=== PATIENT | female | born 1985 | race Caucasian/White ===

== ENCOUNTER → 2016-05-11 | Outpatient (CLI) | payer BC ==
[~2016-05-11] MED LIST: CETI10TA PO; PRIL40CA PO; TRINTAB PO
--- NOTE | 2016-05-11 10:08 | REP ---
CHEST X-RAY: Two views. HISTORY: Bronchitis. FINDINGS: The lungs are well inflated and clear. Heart size is normal. Pulmonary vasculature is not increased. No significant bony abnormality is seen. IMPRESSION: Negative chest x-ray.
== END ==
LOC: M CLY 09:31
PROVIDERS: ATTEND Nurse Practitioner Family
DX: J40 Bronchitis, not specified as acute or chronic (principal); J02.9 Acute pharyngitis, unspecified

== ENCOUNTER → 2016-12-26 | Outpatient (REF) | payer BC ==
[~2016-12-26] MED LIST changes: -TRINTAB PO; +TRINTAB3 PO
== END ==
LOC: M SFHCCLAY 08:45
PROVIDERS: ATTEND Family Medicine
DX: Z01.419 Encounter for gynecological examination (general) (routine) without abnormal findings (principal)

== ENCOUNTER 2017-04-18 08:34 | Emergency (ER) | payer BC ==
[2017-04-18 09:54] LABS: BASO # 0.1 10^3/uL (0.0-0.2); BASO % 0.9 % (0.0-1.0); EOS # 0.1 10^3/uL (0.0-0.50); EOS % 1.7 % (0.0-3.0); HEMATOCRIT 36.6 % (36.0-47.0); HEMOGLOBIN 11.7 g/dl (12.0-16.0); IMMATURE GRANULOCYTE % 0.1 % (0-0); LYMPH # 1.5 10^3/uL (1.5-4.5); LYMPH % 22.1 % (24.0-44.0); MEAN CORPUSCULAR HEMOGLOBIN 26.7 pg (27.0-33.0); MEAN CORPUSCULAR VOLUME 83.6 fl (80.0-96.0); MONO # 0.5 10^3/uL (0.0-0.8); MONO % 6.8 % (0.0-5.0); NEUTROPHILS # 4.7 10^3/uL (1.8-7.7); NEUTROPHILS % 68.4 % (36.0-66.0); PLATELET COUNT, AUTOMATED 302 10^3/uL (150-450); RED BLOOD COUNT 4.38 10^6/uL (4.00-5.40); RED CELL DISTRIBUTION WIDTH 13.6 % (11.5-14.5); WHITE BLOOD COUNT 6.9 10^3/uL (4.0-10.0)
[2017-04-18 10:40] LABS: ANION GAP 7 MEQ/L (8-16); BLOOD UREA NITROGEN 10 MG/DL (7-18); CALCIUM LEVEL 8.4 MG/DL (8.5-10.1); CARBON DIOXIDE LEVEL 29 MEQ/L (21-32); CHLORIDE LEVEL 104 MEQ/L (98-107); FREE THYROXINE INDEX 2.5 % (1.3-4.8); GLOMERULAR FILTRATION RATE > 60.0 (>60); GLUCOSE, FASTING 131 MG/DL (70-105); MAGNESIUM LEVEL 2.2 MG/DL (1.8-2.4); POTASSIUM SERUM 3.8 MEQ/L (3.5-5.1); SODIUM LEVEL 140 MEQ/L (136-145); T UPTAKE 24 % (30-39); THYROXINE (T4) 10.5 UG/DL (4.5-12.0)
== END 2017-04-18 11:43 | disposition home or self-care (01) ==
LOC: M ED 08:34
DX: I49.3 Ventricular premature depolarization (principal); R06.02 Shortness of breath; K21.9 Gastro-esophageal reflux disease without esophagitis; Z79.899 Other long term (current) drug therapy; Z79.3 Long term (current) use of hormonal contraceptives; Z87.891 Personal history of nicotine dependence
CPT/HCPCS: 71045

== ENCOUNTER → 2017-05-08 | Outpatient (REF) | payer BC ==
[2017-05-08 12:48] LABS: BASO # 0.1 10^3/uL (0.0-0.2); EOS # 0.3 10^3/uL (0.0-0.50); EOS % 5.9 % (0.0-3.0); HEMATOCRIT 35.5 % (36.0-47.0); HEMOGLOBIN 11.2 g/dl (12.0-16.0); IMMATURE GRANULOCYTE % 0.2 % (0-0); LYMPH # 2.1 10^3/uL (1.5-4.5); LYMPH % 38.4 % (24.0-44.0); MEAN CORPUSCULAR HEMOGLOBIN 26.4 pg (27.0-33.0); MEAN CORPUSCULAR HGB CONC 31.5 g/dl (32.0-36.5); MEAN CORPUSCULAR VOLUME 83.7 fl (80.0-96.0); MONO # 0.4 10^3/uL (0.0-0.8); MONO % 7.2 % (0.0-5.0); NEUTROPHILS # 2.6 10^3/uL (1.8-7.7); NEUTROPHILS % 46.3 % (36.0-66.0); PLATELET COUNT, AUTOMATED 362 10^3/uL (150-450); RED BLOOD COUNT 4.24 10^6/uL (4.00-5.40); RED CELL DISTRIBUTION WIDTH 13.5 % (11.5-14.5); WHITE BLOOD COUNT 5.6 10^3/uL (4.0-10.0)
[2017-05-08 12:59] LABS: REASON FOR REVIEW COMPREHENSIVE REVIEW; SLIDE REVIEW Report; SOURCE PERIPHERAL SMEAR
[2017-05-08 13:10] LABS: FOLATE 12.2 NG/ML; VITAMIN B12 LEVEL 378 PG/ML
[2017-05-08 13:15] LABS: IRON (FE) 63 UG/DL (50-170); PERCENT SATURATION 12.8 % (13.2-45.0); TOTAL IRON BINDING CAPACITY 493 UG/DL (250-450)
== END ==
LOC: M LABDRAWC 11:48
DX: D64.9 Anemia, unspecified (principal)
CPT/HCPCS: 82746

== ENCOUNTER → 2017-08-07 | Outpatient (CLI) | payer BC ==
[~2017-08-07] MED LIST changes: -CETI10TA PO; +GASTROGRAFIN SOLUTION 30ML (Q9963) As Ordered; +ISOVUE-370 76% 100ML VIAL (Q9967) As Ordered; -PRIL40CA PO; -TRINTAB3 PO
== END ==
LOC: M RAD 12:09
DX: R10.12 Left upper quadrant pain (principal)
CPT/HCPCS: Q9963

== ENCOUNTER → 2018-02-12 | Outpatient (REF) | payer BC | LOC: M LAB REF 17:55 | DX: Z12.4 Encounter for screening for malignant neoplasm of cervix (principal) | CPT/HCPCS: 88142 ==

== ENCOUNTER → 2018-03-05 | Outpatient (REF) | payer BC | LOC: M LAB REF 19:36 | DX: R30.0 Dysuria (principal) | CPT/HCPCS: 87088 ==

== ENCOUNTER → 2018-03-05 | Outpatient (CLI) | payer BC | LOC: M WUC 16:48 | DX: Q76.49 Other congenital malformations of spine, not associated with scoliosis (principal); R30.0 Dysuria; M54.5 Low back pain | CPT/HCPCS: 72110 ==

== ENCOUNTER → 2018-04-17 | Outpatient (CLI) | payer BC ==
[~2018-04-17] MED LIST changes: +CARA1TAB6 PO; +CETI10TA PO; +CYCL10TA PO; +ESOM1CAP5 PO; -GASTROGRAFIN SOLUTION 30ML (Q9963) As Ordered; -ISOVUE-370 76% 100ML VIAL (Q9967) As Ordered; +PRIL40CA PO; +TRINTAB PO; +VENTAER; +ZYRT10CA5 PO
== END ==
LOC: M RAD 08:17
PROVIDERS: ATTEND Internal Medicine Gastroenterology
DX: K80.20 Calculus of gallbladder without cholecystitis without obstruction (principal); K82.9 Disease of gallbladder, unspecified; R10.11 Right upper quadrant pain; Z53.9 Procedure and treatment not carried out, unspecified reason

== ENCOUNTER 2018-06-18 07:15 | Day surgery (SDC) | payer BC ==
[~2018-06-18] VITALS: Ht 172.7 cm; Wt 93.0 kg
[~2018-06-18 07:15] MED LIST changes: +LIDOCAINE 1% MDV 20ML VIAL SQ PRN; +LORA-243 PO; +LR 1,000 ML IV ONE
[2018-06-18 08:25] LABS: URINE PREG TEST NEGATIVE (NEGATIVE)
[2018-06-18] MEDS ORDERED: IBUP200C25 PO (08:39)
[2018-06-18] MEDS ORDERED: BUPIVACAINE HCL 0.25% 30 ML VIAL As Ordered ONE (09:03)
[2018-06-18] MEDS ORDERED: PROPOFOL 200 MG/20 ML VIAL As Ordered ONE ×2 (09:09→10:20)
[2018-06-18] MEDS ORDERED: LIDOCAINE 2% INJ 100 MG/5 ML SDV (FOR ANES.) As Ordered ONE (09:09)
[2018-06-18] MEDS ORDERED: fentaNYL 250 MCG/5 ML INJECTION (J3010) As Ordered ONE (09:09)
[2018-06-18] MEDS ORDERED: ROCURONIUM BROMIDE 50 MG/5 ML VIAL As Ordered ONE (09:09)
[2018-06-18] MEDS ORDERED: MIDAZOLAM INJ 2 MG/2 ML VIAL (J2250) As Ordered ONE (09:09)
[2018-06-18] MEDS ORDERED: dexameTHASONE 4 MG/ML 1ML VIAL (J1100) As Ordered ONE (09:09)
[2018-06-18] MEDS ORDERED: GLYCOPYRROLATE INJ 0.2 MG/ML 2 ML VIAL As Ordered ONE (10:23)
[2018-06-18] MEDS ORDERED: ONDANSETRON 4MG/2ML VIAL (J2405) As Ordered ONE (10:23)
[2018-06-18] MEDS ORDERED: HYDROmorphone HCL 2 MG/ML 1ML VIAL (J1170) As Ordered ONE (10:23)
[2018-06-18] MEDS ORDERED: KETOROLAC 60 MG/2 ML VIAL (J1885) As Ordered ONE (10:23)
[2018-06-18] MEDS ORDERED: NEOSTIGMINE 10 MG/10 ML VIAL (J2710) As Ordered ONE (10:23)
[2018-06-18] MEDS ORDERED: ePHEDrine SULFATE 25 MG/5 ML(5MG/ML) SYRINGE As Ordered ONE (10:40)
[2018-06-18] MEDS ORDERED: PHENYLephrine HCL 500 MCG/5 ML (100MCG/ML) SYRINGE (J2370) As Ordered ONE (10:40)
[2018-06-18] MEDS ORDERED: METOCLOPRAMIDE INJ 10MG/2ML VIAL (J2765) As Ordered ONE (10:51)
[2018-06-18] MEDS ORDERED: ESMOLOL INJ 100MG/10ML VIAL As Ordered ONE (11:26)
[2018-06-18] MEDS ORDERED: IBUPROFEN 600 MG TAB PO PRN (11:45)
[2018-06-18] MEDS ORDERED: PERCOCET 5MG/325MG TAB PO PRN (11:45)
[2018-06-18] MEDS ORDERED: ONDANSETRON 4MG/2ML VIAL (J2405) IV PRN (11:45)
[2018-06-18] MEDS ORDERED: NORCO, ANEXSIA 5/325MG TABLET (HYDROcodone/ACETAMINOPHEN) PO PRN (11:45)
[2018-06-18] MEDS ORDERED: HYDROMORPHONE HCL 0.5 MG/ 0.5 ML SYRINGE (J1170 PER 1) IV PRN (11:45)
[2018-06-18] MEDS ORDERED: fentaNYL 100 MCG/2 ML INJECTION (J3010) IV PRN (11:45)
[2018-06-18] MEDS ORDERED: ACETAMINOPHEN TAB 650MG DOSE (2X325MG) PO PRN (11:45)
[2018-06-18] MEDS ORDERED: LR 1,000 ML IV SCH (11:45)
[2018-06-18] MEDS ORDERED: METOPROLOL 5 MG/5 ML VIAL As Ordered ONE (11:55)
[2018-06-18] MEDS: METOPROLOL 5 MG/5 ML VIAL IV SCH ×2 (11:57→12:03)
[2018-06-18 12:03] VITALS: BP 144/83
[2018-06-18 13:50] VITALS: BP 134/81
[2018-06-18] MEDS ORDERED: SUGAMMADEX SODIUM 500 MG/5 ML VIAL (BRIDION) As Ordered ONE (15:36)
--- NOTE | 2018-06-20 07:16 | RO ---
DATE OF PROCEDURE: 06/18/2018 PREOPERATIVE DIAGNOSIS: Symptomatic gallstones. POSTOPERATIVE DIAGNOSES: 1. Symptomatic gallstones. 2. Umbilical hernia. PROCEDURE PERFORMED: His laparoscopic cholecystectomy with repair of umbilical hernia. SURGEON: Dr. Park AUCTION CLERK: SAMMY Weeks ANESTHESIA: General. INDICATIONS FOR PROCEDURE: The patient is a 33-year-old woman with history of episodic upper abdominal pain. She was found to have cholelithiasis. She is now for laparoscopic cholecystectomy. OPERATIVE PROCEDURE: The patient was brought to the operating room and placed on the table in a supine position. She was placed under general endotracheal anesthesia. The patient's abdomen was prepped and draped in a sterile fashion. Inspection revealed the patient had a small umbilical hernia protruding right in the center of the umbilicus. The palpable defect was perhaps 8-10 mm. I elected to utilize this as the site for insertion of the initial trocar. Therefore, local anesthesia was achieved with 0.25% Marcaine. An incision was begun in the umbilicus and extended superiorly. This was deepened through the subcutaneous tissues. The incision was deepened down to the level of the fascia. A small hernia sac was identified and this was excised. An opening was created through the preperitoneal fat and peritoneum and an 11 mm trocar was passed into the abdomen. The abdomen was insufflated with carbon dioxide gas. The laparoscope was placed. Initial examination showed a normal-appearing liver. Visualized portions of the small large bowel in the stomach all appeared normal. The patient was tilted to a reverse Trendelenburg position. Two 5 mm trocars were placed in the right upper quadrant and there is a third 5 mm trocar was placed in left upper quadrant. Graspers were inserted and the edge of the liver was elevated and the gallbladder was grasped. The gallbladder wall appeared somewhat thickened but there was no acute inflammation. Dissection was but begun at the gallbladder neck by opening the peritoneum using the hook cautery. Dissection proceeded through the pericholecystic tissues using the hook cautery. The cystic duct was clearly identified. A small blood vessel running near the cystic duct was elevated thoroughly cauterized and divided. The cystic duct was then divided out circumferentially. The cystic duct was doubly clipped with hemoclips and divided. The gallbladder was then dissected free from the gallbladder bed using the spatula cautery. The gallbladder was not perforated in the course of dissection. The gallbladder was placed in the Endopouch. The right upper quadrant was irrigated and inspected. A single small bleeder in the gallbladder bed was controlled with cautery. Repeat inspection showed no evidence of bleeding or bile leak. The patient was returned to a flat position. The abdomen was deflated and the trocars were removed. The gallbladder was recovered through the umbilical hernia defect. Palpation of the gallbladder reveals perhaps the nose and small stones. This was sent for permanent pathology. The fascia in the umbilical incision was then cleared of some overlying fibrofatty tissue and the edges were clearly identified. The fascial defect was closed transversely with interrupted simple sutures of 2-0 Vicryl. The umbilicus was tacked down to the underlying fascia with a 3-0 Vicryl. The skin incisions were then all closed with buried four or 5-0 Vicryl and Steri-Strips. Light dressings were applied. The patient tolerated the procedure well without apparent complication. She was awakened in the operating room, extubated and moved to the recovery room in stable condition.
== END 2018-06-18 13:55 | disposition home or self-care (01) ==
LOC: M SDC 07:15
PROVIDERS: ATTEND Surgery
DX: K80.18 Calculus of gallbladder with other cholecystitis without obstruction (principal); K42.9 Umbilical hernia without obstruction or gangrene; K21.9 Gastro-esophageal reflux disease without esophagitis; E04.1 Nontoxic single thyroid nodule; L40.8 Other psoriasis; Z79.51 Long term (current) use of inhaled steroids; Z79.899 Other long term (current) drug therapy
CPT/HCPCS: 47562; 49585; 84703; 88304; J1100; J1170; J1885; J2250; J2370; J2405; J2710; J2765; J3010

== ENCOUNTER → 2018-11-20 | Outpatient (REF) | payer BC ==
[~2018-11-20] MED LIST changes: +IBUP200C25 PO; -LIDOCAINE 1% MDV 20ML VIAL SQ PRN; -LR 1,000 ML IV ONE
[2018-11-20 11:37] LABS: BASO # 0.1 10^3/uL (0.0-0.2); BASO % 0.8 % (0.0-1.0); EOS # 0.2 10^3/uL (0.0-0.50); EOS % 2.6 % (0.0-3.0); HEMATOCRIT 36.5 % (36.0-47.0); HEMOGLOBIN 11.5 g/dl (12.0-15.5); LYMPH # 2.3 10^3/uL (1.5-4.5); LYMPH % 37.5 % (24.0-44.0); MEAN CORPUSCULAR HEMOGLOBIN 27.4 pg (27.0-33.0); MEAN CORPUSCULAR HGB CONC 31.5 g/dl (32.0-36.5); MEAN CORPUSCULAR VOLUME 86.9 fl (80.0-96.0); MONO # 0.4 10^3/uL (0.0-0.8); MONO % 6.9 % (0.0-5.0); NEUTROPHILS # 3.2 10^3/uL (1.8-7.7); NEUTROPHILS % 51.9 % (36.0-66.0); PLATELET COUNT, AUTOMATED 315 10^3/uL (150-450); WHITE BLOOD COUNT 6.2 10^3/uL (4.0-10.0)
[2018-11-20 11:49] LABS: ALBUMIN 3.2 GM/DL (3.2-5.2); ALT/SGPT 14 U/L (12-78); BILIRUBIN,TOTAL 0.3 MG/DL (0.2-1.0); BLOOD UREA NITROGEN 9 MG/DL (7-18); CALCIUM LEVEL 9.1 MG/DL (8.5-10.1); CARBON DIOXIDE LEVEL 28 MEQ/L (21-32); CHLORIDE LEVEL 108 MEQ/L (98-107); CHOLESTEROL LEVEL 207 MG/DL (<200); CREATININE FOR GFR 0.74 MG/DL (0.55-1.30); FERRITIN 4 NG/ML (8-252); FREE THYROXINE INDEX 3.3 % (1.3-4.8); GLOMERULAR FILTRATION RATE > 60.0 (>60); GLUCOSE, FASTING 97 MG/DL (70-100); HDL CHOLESTEROL 60 MG/DL (>40); IRON (FE) 65 UG/DL (50-170); LDL CHOLESTEROL 112 MG/DL (<100); NON-HDL-C 147 MG/DL; PERCENT SATURATION 13.3 % (13.2-45.0); POTASSIUM SERUM 4.5 MEQ/L (3.5-5.1); SODIUM LEVEL 141 MEQ/L (136-145); T UPTAKE 25 % (30-39); TOTAL IRON BINDING CAPACITY 490 UG/DL (250-450); TOTAL PROTEIN 7.1 GM/DL (6.4-8.2); TRIGLYCERIDES LEVEL 175 MG/DL (<150)
[2018-11-20 12:17] LABS: FOLATE 15.3 NG/ML (>5.4); TOTAL 25(OH) VITAMIN D 32.7 NG/ML (30.0-100.0); VITAMIN B12 LEVEL 340 PG/ML (247-911)
== END ==
LOC: M SFHCCLAY 07:44
PROVIDERS: ATTEND Nurse Practitioner Family
DX: K21.0 Gastro-esophageal reflux disease with esophagitis (principal); E78.1 Pure hyperglyceridemia; Z86.2 Personal history of diseases of the blood and blood-forming organs and certain disorders involving the immune mechanism; R53.83 Other fatigue

== ENCOUNTER → 2018-11-25 | Outpatient (CLI) | payer BC ==
--- NOTE | 2018-11-26 08:23 | REP ---
REASON: Thyromegaly. COMPARISON: 06/15/2015, the latest prior. Right lobe of the thyroid measures 4.7 x 1.9 x 1.7 cm and the left lobe measures 4.9 x 1.6 x 1.90 cm. The isthmus measures 5 mm. There is a tiny complex cystic and solid structure seen in the mid polar region of the right lobe which measures 8 mm and there is a tiny cyst in the inferior pole of the right lobe measuring 7 mm. There is tiny cyst in the lower pole region of the left lobe which measures 5 mm. IMPRESSION: No significant change compared to the prior exam. Electronically Signed by Shashank Martinez DO 11/26/2018 12:01 P
== END ==
LOC: M RAD 15:57
PROVIDERS: ATTEND Nurse Practitioner Family
DX: E04.9 Nontoxic goiter, unspecified (principal)

== ENCOUNTER → 2018-11-26 | Outpatient (CLI) | payer BC ==
[2018-11-26 17:09] LABS: ALBUMIN 3.6 GM/DL (3.2-5.2); ALT/SGPT 17 U/L (12-78); BILIRUBIN,TOTAL 0.2 MG/DL (0.2-1.0); BLOOD UREA NITROGEN 11 MG/DL (7-18); CALCIUM LEVEL 9.2 MG/DL (8.5-10.1); CARBON DIOXIDE LEVEL 25 MEQ/L (21-32); CHLORIDE LEVEL 106 MEQ/L (98-107); CK-MB VALUE MASS < 1.0 NG/ML (<3.6); CPK CREATINE PHOSPHOKINASE 78 U/L (26-192); CREATININE FOR GFR 0.86 MG/DL (0.55-1.30); FREE T4 0.96 NG/DL (0.76-1.46); GLOMERULAR FILTRATION RATE > 60.0 (>60); GLUCOSE, FASTING 103 MG/DL (70-100); MB/CK RELATIVE INDEX 1.28 (< OR =4); POTASSIUM SERUM 4.5 MEQ/L (3.5-5.1); SODIUM LEVEL 141 MEQ/L (136-145); THYROID STIMULATING HORMONE 0.635 uIU/ML (0.358-3.740); TOTAL PROTEIN 7.4 GM/DL (6.4-8.2); TROPONIN I < 0.02 NG/ML (< 0.10)
[2018-11-26 17:11] LABS: BASO # 0.1 10^3/uL (0.0-0.2); EOS # 0.1 10^3/uL (0.0-0.50); EOS % 1.8 % (0.0-3.0); HEMATOCRIT 38.1 % (36.0-47.0); HEMOGLOBIN 11.9 g/dl (12.0-15.5); LYMPH # 1.7 10^3/uL (1.5-4.5); LYMPH % 34.4 % (24.0-44.0); MEAN CORPUSCULAR HEMOGLOBIN 27.5 pg (27.0-33.0); MEAN CORPUSCULAR HGB CONC 31.2 g/dl (32.0-36.5); MONO # 0.5 10^3/uL (0.0-0.8); MONO % 9.7 % (0.0-5.0); NEUTROPHILS # 2.6 10^3/uL (1.8-7.7); NEUTROPHILS % 52.9 % (36.0-66.0); PLATELET COUNT, AUTOMATED 340 10^3/uL (150-450); RED BLOOD COUNT 4.33 10^6/uL (4.00-5.40); WHITE BLOOD COUNT 4.9 10^3/uL (4.0-10.0)
[2018-11-26 19:08] LABS: ERYTHROCYTE SEDIMENTATION RATE 24 mm/hr (0-20)
== END ==
LOC: M WUC 11:09
PROVIDERS: ATTEND Physician Assistant
DX: R07.1 Chest pain on breathing (principal)

== ENCOUNTER → 2019-01-31 | Outpatient (REF) | payer BC | LOC: M SFHCCLAY 11:24 | PROVIDERS: ATTEND Nurse Practitioner Family | DX: J02.9 Acute pharyngitis, unspecified (principal) ==

== ENCOUNTER → 2019-03-23 | Outpatient (REF) | payer BC | LOC: M LAB REF 13:27 | PROVIDERS: ATTEND Internal Medicine | DX: J02.9 Acute pharyngitis, unspecified (principal) ==

== ENCOUNTER → 2019-04-18 | Outpatient (REF) | payer BC | LOC: M LAB REF 15:22 | PROVIDERS: ATTEND Otolaryngology | DX: J02.9 Acute pharyngitis, unspecified (principal) ==

== ENCOUNTER → 2019-06-12 | Outpatient (CLI) | payer BC ==
--- NOTE | 2019-06-12 13:18 | REP ---
Sternum: Three views. History: Pain. No history of trauma. Findings: And lateral views of the sternum demonstrate intact and normally aligned manubrium and sternum. Pre sternal and retrosternal soft tissues are unremarkable. The manubrial clavicular articulations are symmetric and normal in appearance. No medial clavicular abnormality is seen. Impression: Negative radiographs of the sternum. Electronically Signed by Peter Garcia MD 06/12/2019 01:10 P
== END ==
LOC: M CLY 11:27
PROVIDERS: ATTEND Family Medicine
DX: R07.89 Other chest pain (principal)

== ENCOUNTER → 2019-07-21 | Outpatient (REF) | payer BC ==
[2019-07-21 11:52] LABS: BASO # 0.1 10^3/uL (0.0-0.2); BASO % 0.7 % (0.0-1.0); EOS # 0.2 10^3/uL (0.0-0.5); EOS % 2.8 % (0.0-3.0); HEMOGLOBIN 11.2 g/dl (12.0-15.5); LYMPH # 2.7 10^3/uL (1.5-5.0); LYMPH % 38.8 % (24.0-44.0); MEAN CORPUSCULAR HEMOGLOBIN 27.1 pg (27.0-33.0); MEAN CORPUSCULAR HGB CONC 31.1 g/dl (32.0-36.5); MEAN CORPUSCULAR VOLUME 87.2 fl (80.0-96.0); MONO # 0.4 10^3/uL (0.0-0.8); MONO % 6.1 % (0.0-5.0); NEUTROPHILS # 3.5 10^3/uL (1.5-8.5); NEUTROPHILS % 51.3 % (36.0-66.0); PLATELET COUNT, AUTOMATED 305 10^3/uL (150-450); RED BLOOD COUNT 4.13 10^6/uL (4.00-5.40); WHITE BLOOD COUNT 6.9 10^3/uL (4.0-10.0)
[2019-07-21 12:09] LABS: ALBUMIN 3.1 GM/DL (3.2-5.2); ALT/SGPT 12 U/L (12-78); BILIRUBIN,TOTAL 0.3 MG/DL (0.2-1.0); BLOOD UREA NITROGEN 11 MG/DL (7-18); C REACTIVE PROTEIN QUANTITATIV 1.48 MG/DL (0.00-0.30); CALCIUM LEVEL 8.8 MG/DL (8.5-10.1); CARBON DIOXIDE LEVEL 29 MEQ/L (21-32); CHLORIDE LEVEL 106 MEQ/L (98-107); CREATININE FOR GFR 0.76 MG/DL (0.55-1.30); GLOMERULAR FILTRATION RATE > 60.0 (>60); GLUCOSE, FASTING 93 MG/DL (70-100); POTASSIUM SERUM 4.3 MEQ/L (3.5-5.1); RHEUMATOID FACTOR QUANT < 10.0 IU/ML (<15.0); SODIUM LEVEL 138 MEQ/L (136-145)
[2019-07-21 12:10] LABS: ERYTHROCYTE SEDIMENTATION RATE 37 mm/hr (0-20)
[2019-07-23 00:06] LABS: ANA (HEP2) Negative (.); CYCLIC CITRULLINATED PEPTIDE 10 units (0-19); Lyme Disease IgG/IgM Antibodie <0.91 ISR (0.00-0.90); Lyme Disease IgM Ab Quantitati <0.80 index (0.00-0.79)
== END ==
LOC: M SFHCCLAY 08:06
PROVIDERS: ATTEND Family Medicine
DX: R07.89 Other chest pain (principal); M79.10 Myalgia, unspecified site; M25.50 Pain in unspecified joint

== ENCOUNTER → 2019-08-15 | Outpatient (REF) | payer BC ==
[~2019-08-15] MED LIST changes: +CYCL-707 PO; -CYCL10TA PO
== END ==
LOC: M SFHCWAGY 10:07
PROVIDERS: ATTEND Advanced Practice Midwife
DX: Z12.4 Encounter for screening for malignant neoplasm of cervix (principal)
CPT/HCPCS: 87624; G0123

== ENCOUNTER → 2020-08-14 | Outpatient (CLI) | payer BC, OTHER | LOC: M LABSMTC 10:16 | PROVIDERS: ATTEND Ophthalmology | DX: Z03.818 Encounter for observation for suspected exposure to other biological agents ruled out (principal); Z20.822 Contact with and (suspected) exposure to COVID-19 ==

== ENCOUNTER → 2020-10-04 | Outpatient (REF) | payer OTHER | LOC: M SFHCWAGY 10:51 | PROVIDERS: ATTEND Advanced Practice Midwife | DX: Z12.4 Encounter for screening for malignant neoplasm of cervix (principal) | CPT/HCPCS: 87624; G0123 ==

== ENCOUNTER → 2021-02-14 | Outpatient (REF) | payer OTHER ==
[2021-02-14 18:00] LABS: BASO # 0.1 10^3/uL (0.0-0.2); BASO % 0.9 % (0.0-1.0); EOS # 0.1 10^3/uL (0.0-0.5); EOS % 1.8 % (0.0-3.0); HEMATOCRIT 42.9 % (36.0-47.0); HEMOGLOBIN 13.7 g/dl (12.0-15.5); LYMPH # 2.1 10^3/uL (1.5-5.0); LYMPH % 31.5 % (24.0-44.0); MEAN CORPUSCULAR HEMOGLOBIN 28.6 pg (27.0-33.0); MEAN CORPUSCULAR HGB CONC 31.9 g/dl (32.0-36.5); MEAN CORPUSCULAR VOLUME 89.6 fl (80.0-96.0); MONO # 0.5 10^3/uL (0.0-0.8); MONO % 7.7 % (2.0-8.0); NEUTROPHILS # 3.9 10^3/uL (1.5-8.5); PLATELET COUNT, AUTOMATED 304 10^3/uL (150-450); RED BLOOD COUNT 4.79 10^6/uL (4.00-5.40); WHITE BLOOD COUNT 6.8 10^3/uL (4.0-10.0)
[2021-02-14 18:15] LABS: ALBUMIN 3.8 GM/DL (3.2-5.2); ALT/SGPT 48 U/L (12-78); BILIRUBIN,TOTAL 0.5 MG/DL (0.2-1.0); BLOOD UREA NITROGEN 10 MG/DL (7-18); CALCIUM LEVEL 9.2 MG/DL (8.5-10.1); CARBON DIOXIDE LEVEL 30 MEQ/L (21-32); CHLORIDE LEVEL 107 MEQ/L (98-107); CHOLESTEROL LEVEL 233 MG/DL (<200); CHOLESTEROL RISK RATIO 4.087 (<5); CREATININE FOR GFR 0.76 MG/DL (0.55-1.30); GLOMERULAR FILTRATION RATE > 60.0 (>60); GLUCOSE, FASTING 104 MG/DL (70-100); HDL CHOLESTEROL 57 MG/DL (>40); IRON (FE) 85 UG/DL (50-170); LDL CHOLESTEROL 154 MG/DL (<100); NON-HDL-C 176 MG/DL; POTASSIUM SERUM 4.4 MEQ/L (3.5-5.1); SODIUM LEVEL 140 MEQ/L (136-145); TOTAL PROTEIN 7.4 GM/DL (6.4-8.2); TRIGLYCERIDES LEVEL 110 MG/DL (<150)
== END ==
LOC: M SFHCCLAY 10:03
PROVIDERS: ATTEND Family Medicine
DX: Z86.2 Personal history of diseases of the blood and blood-forming organs and certain disorders involving the immune mechanism (principal); K21.00 Gastro-esophageal reflux disease with esophagitis, without bleeding; E78.1 Pure hyperglyceridemia

== ENCOUNTER → 2021-02-16 | Outpatient (CLI) | payer OTHER ==
--- NOTE | 2021-02-16 16:45 | REP ---
INDICATION: THORACIC AND LOWER BACK PAIN. COMPARISON: None TECHNIQUE: AP and lateral views FINDINGS: Vertebral body height and alignment is within normal limits. The disc spaces are symmetric and relatively well maintained. There is minimal posterior disc space narrowing. Pedicles are intact bilaterally. IMPRESSION: Minimal degenerative changes. Incidental note is made of either partial sacralization of L5 or partial lumbarization of S1. An exact vertebral body count cannot be made by this exam. <Electronically signed by Shashank Martinez > 02/16/21 [id number]
--- NOTE | 2021-02-16 16:46 | REP ---
INDICATION: SPINE PAIN. COMPARISON: None. TECHNIQUE: AP and lateral FINDINGS: Vertebral body height and alignment is within normal limits. The disc spaces are symmetric and well maintained. The pedicles are intact bilaterally. IMPRESSION: No acute osseous abnormality. <Electronically signed by Shashank Martinez > 02/16/21 [id number]
--- NOTE | 2021-02-16 16:46 | REP ---
INDICATION: CERVICALGIA. COMPARISON: None TECHNIQUE: Four views total FINDINGS: Vertebral body height and alignment is within normal limits. The disc spaces appear symmetric and well maintained throughout. The facet joints appear to be well aligned bilaterally. The C7-T1 level cannot be evaluated. No swimmer's view was obtained. The dens cannot be effectively evaluated secondary to the superimposition of osseous structures and/or dentition on all views. IMPRESSION: Unremarkable cervical spine series. Exam limitations as described above. <Electronically signed by Shashank Martinez > 02/16/21 [id number]
== END ==
LOC: M CLY 15:33
PROVIDERS: ATTEND Family Medicine
DX: M54.6 Pain in thoracic spine (principal); M54.50 Low back pain, unspecified

== ENCOUNTER → 2021-02-16 | Outpatient (REF) | payer OTHER ==
[2021-02-18 16:09] LABS: Lyme Disease IgG/IgM Antibodie <0.91 ISR (0.00-0.90); Lyme Disease IgM Ab Quantitati <0.80 index (0.00-0.79)
== END ==
LOC: M SFHCCLAY 15:22
PROVIDERS: ATTEND Family Medicine
DX: M79.10 Myalgia, unspecified site (principal)

== ENCOUNTER → 2021-03-16 | Outpatient (CLI) | payer OTHER | LOC: M PLAIMG 15:18 | PROVIDERS: ATTEND Family Medicine | DX: G44.52 New daily persistent headache (NDPH) (principal); J34.1 Cyst and mucocele of nose and nasal sinus ==

== ENCOUNTER → 2021-03-29 | Outpatient (REF) | payer OTHER | LOC: M SFHCCLAY 07:28 | PROVIDERS: ATTEND Family Medicine | DX: Z20.822 Contact with and (suspected) exposure to COVID-19 (principal) ==

== ENCOUNTER → 2022-03-15 | Outpatient (REF) | payer OTHER ==
[2022-03-15 11:52] LABS: BASO # 0.1 10^3/uL (0.0-0.2); BASO % 0.9 % (0.0-1.0); EOS # 0.1 10^3/uL (0.0-0.5); EOS % 1.5 % (0.0-3.0); HEMATOCRIT 40.2 % (36.0-47.0); LYMPH # 2.3 10^3/uL (1.5-5.0); MEAN CORPUSCULAR HEMOGLOBIN 29.9 pg (27.0-33.0); MEAN CORPUSCULAR HGB CONC 32.3 g/dl (32.0-36.5); MEAN CORPUSCULAR VOLUME 92.4 fl (80.0-96.0); MONO # 0.6 10^3/uL (0.0-0.8); MONO % 6.7 % (2.0-8.0); NEUTROPHILS # 6.1 10^3/uL (1.5-8.5); NEUTROPHILS % 65.6 % (36.0-66.0); PLATELET COUNT, AUTOMATED 286 10^3/uL (150-450); RED BLOOD COUNT 4.35 10^6/uL (4.00-5.40); WHITE BLOOD COUNT 9.4 10^3/uL (4.0-10.0)
[2022-03-15 12:14] LABS: MAGNESIUM LEVEL 1.9 MG/DL (1.8-2.4)
[2022-03-15 12:15] LABS: IRON (FE) 72 UG/DL (50-170)
[2022-03-15 12:16] LABS: ALBUMIN 3.8 G/DL (3.2-5.2); ALKALINE PHOSPHATASE 64 U/L (46-116); ALT/SGPT 15 U/L (7.0-40); AST/SGOT 12 U/L (<34); BILIRUBIN,TOTAL 0.5 MG/DL (0.3-1.2); BLOOD UREA NITROGEN 11 MG/DL (9-23); CALCIUM LEVEL 8.9 MG/DL (8.5-10.1); CARBON DIOXIDE LEVEL 28 MMOL/L (20-31); CHLORIDE LEVEL 103 MMOL/L (98-107); CHOLESTEROL LEVEL 208 MG/DL (<200); CHOLESTEROL RISK RATIO 3.45 (<5); CREATININE FOR GFR 0.73 MG/DL (0.55-1.30); FERRITIN 33.6 NG/ML (7.3-270.7); GLOMERULAR FILTRATION RATE > 60.0 (>60); GLUCOSE, FASTING 127 MG/DL (60-100); HDL CHOLESTEROL 60.2 MG/DL (>40); LDL CHOLESTEROL 123.4 MG/DL (<100); NON-HDL-C 148 MG/DL; POTASSIUM SERUM 4.3 MMOL/L (3.5-5.1); SODIUM LEVEL 139 MMOL/L (136-145); THYROID STIMULATING HORMONE 1.654 uIU/ML (0.55-4.78); TOTAL PROTEIN 6.9 G/DL (5.7-8.2); TRIGLYCERIDES LEVEL 122 MG/DL (<150); VITAMIN B12 LEVEL 472 PG/ML (211-911)
[2022-03-15 12:26] LABS: HEMOGLOBIN A1c 5.4 % (4.0-6.0)
[2022-03-15 15:49] LABS: FOLATE 14.91 NG/ML (>5.4)
== END ==
LOC: M SFHCCLAY 07:33
PROVIDERS: ATTEND Physician Assistant
DX: R20.8 Other disturbances of skin sensation (principal); Z86.2 Personal history of diseases of the blood and blood-forming organs and certain disorders involving the immune mechanism; E78.1 Pure hyperglyceridemia

== ENCOUNTER → 2022-03-17 | Outpatient (CLI) | payer OTHER | LOC: M CLY 11:34 | PROVIDERS: ATTEND Family Medicine | DX: R07.89 Other chest pain (principal) ==

== ENCOUNTER → 2022-03-23 | Outpatient (REF) | payer OTHER | LOC: M PLALAB 11:03 | PROVIDERS: ATTEND Advanced Practice Midwife | DX: Z01.411 Encounter for gynecological examination (general) (routine) with abnormal findings (principal) | CPT/HCPCS: 87624; G0123 ==

== ENCOUNTER → 2022-03-24 | Outpatient (CLI) | payer OTHER | LOC: M WHC 09:16 | PROVIDERS: ATTEND Advanced Practice Midwife | DX: N93.9 Abnormal uterine and vaginal bleeding, unspecified (principal); N83.201 Unspecified ovarian cyst, right side; N83.202 Unspecified ovarian cyst, left side ==

== ENCOUNTER → 2022-04-19 | Outpatient (CLI) | payer OTHER | LOC: M PLAIMG 09:51 | PROVIDERS: ATTEND Family Medicine | DX: R07.89 Other chest pain (principal); R05.8 Other specified cough ==

== ENCOUNTER → 2022-05-31 | Outpatient (REF) | payer OTHER | LOC: M PLALAB 15:36 | PROVIDERS: ATTEND Advanced Practice Midwife | DX: N92.1 Excessive and frequent menstruation with irregular cycle (principal) ==

== ENCOUNTER → 2022-06-19 | Outpatient (REF) | payer OTHER | LOC: M WUC 11:28 | PROVIDERS: ATTEND Physician Assistant | DX: R19.7 Diarrhea, unspecified (principal) ==

== ENCOUNTER → 2022-10-30 | Outpatient (REF) | payer OTHER ==
[2022-10-30 18:30] LABS: HEMATOCRIT 41.8 % (36.0-47.0); HEMOGLOBIN 13.5 g/dl (12.0-15.5); MEAN CORPUSCULAR HEMOGLOBIN 29.6 pg (27.0-33.0); MEAN CORPUSCULAR HGB CONC 32.3 g/dl (32.0-36.5); MEAN CORPUSCULAR VOLUME 91.7 fl (80.0-96.0); PLATELET COUNT, AUTOMATED 260 10^3/uL (150-450); RED BLOOD COUNT 4.56 10^6/uL (4.00-5.40); WHITE BLOOD COUNT 5.1 10^3/uL (4.0-10.0)
[2022-10-30 18:57] LABS: ALBUMIN 3.8 G/DL (3.2-5.2); ALKALINE PHOSPHATASE 57 U/L (46-116); ALT/SGPT 16 U/L (7.0-40); AST/SGOT < 8 U/L (<34); BILIRUBIN,TOTAL 0.5 MG/DL (0.3-1.2); BLOOD UREA NITROGEN 12 MG/DL (9-23); CALCIUM LEVEL 8.7 MG/DL (8.5-10.1); CARBON DIOXIDE LEVEL 26 MMOL/L (20-31); CHLORIDE LEVEL 106 MMOL/L (98-107); CREATININE FOR GFR 0.66 MG/DL (0.55-1.30); GLOMERULAR FILTRATION RATE > 60.0 (>60); GLUCOSE, FASTING 101 MG/DL (60-100); POTASSIUM SERUM 4.8 MMOL/L (3.5-5.1); SODIUM LEVEL 141 MMOL/L (136-145); TOTAL PROTEIN 6.9 G/DL (5.7-8.2)
[2022-10-30 19:00] LABS: RHEUMATOID FACTOR QUANT < 3.5 IU/ML (<14)
[2022-10-30 19:11] LABS: HEPATITIS B SURFACE ANTIGEN NEGATIVE (NEGATIVE)
[2022-10-30 19:31] LABS: HEPATITIS C VIRUS ABY INDEX 0.18 INDEX (<0.8)
[2022-10-30 19:32] LABS: HEPATITIS B CORE ANTIBODY IGM NEGATIVE (NEGATIVE)
== END ==
LOC: M SFHCDERM 10:39
PROVIDERS: ATTEND Physician Assistant
DX: L40.9 Psoriasis, unspecified (principal)

== ENCOUNTER 2023-01-22 14:01 | Emergency (ER) | payer OTHER ==
[~2023-01-22] VITALS: Ht 172.7 cm; Wt 96.4 kg
[~2023-01-22 14:01] MED LIST changes: +CORE6.25 PO; +ESCI5SOL3 PO; +ESOM0.1C PO; +FERR325T3 PO; +FLON1SPR; +ZYRT10TA12 PO
[2023-01-22 14:02] VITALS: TEMP 97.9
[2023-01-22] MEDS ORDERED: FERRTAB6 (15:01)
[2023-01-22] MEDS ORDERED: LEXA5TAB13 (15:01)
[2023-01-22] MEDS ORDERED: ASPIRIN 81MG CHEW TABLET PO ONE (15:15)
[2023-01-22 15:45] LABS: BASO % 0.6 % (0.0-1.0); EOS # 0.1 10^3/uL (0.0-0.5); EOS % 1.8 % (0.0-3.0); HEMOGLOBIN 13.1 g/dl (12.0-15.5); LYMPH # 2.2 10^3/uL (1.5-5.0); LYMPH % 31.6 % (24.0-44.0); MEAN CORPUSCULAR HEMOGLOBIN 30.5 pg (27.0-33.0); MEAN CORPUSCULAR HGB CONC 33.6 g/dl (32.0-36.5); MEAN CORPUSCULAR VOLUME 90.7 fl (80.0-96.0); MONO # 0.6 10^3/uL (0.0-0.8); MONO % 8.4 % (2.0-8.0); NEUTROPHILS # 3.9 10^3/uL (1.5-8.5); NEUTROPHILS % 57.5 % (36.0-66.0); PLATELET COUNT, AUTOMATED 257 10^3/uL (150-450); WHITE BLOOD COUNT 6.8 10^3/uL (4.0-10.0)
[2023-01-22 15:56] LABS: INR 0.92; PROTHROMBIN TIME 12.1 SECONDS (12.5-14.5)
[2023-01-22 15:57] LABS: PARTIAL THROMBOPLASTIN TIME 26.2 SECONDS (24.8-34.2)
[2023-01-22 16:11] LABS: LIPASE 40 U/L (12-53)
[2023-01-22 16:12] LABS: CK-MB VALUE MASS < 1.0 NG/ML (<3.6)
[2023-01-22 16:13] LABS: CPK CREATINE PHOSPHOKINASE 88 U/L (34-145); MB/CK RELATIVE INDEX 1.13 (< OR =4)
[2023-01-22 16:15] LABS: THYROID STIMULATING HORMONE 1.576 uIU/ML (0.55-4.78)
[2023-01-22 16:17] LABS: RSV AMPLIFICATION NEGATIVE (NEGATIVE)
[2023-01-22 16:39] LABS: ALBUMIN 3.8 G/DL (3.2-5.2); ALKALINE PHOSPHATASE 70 U/L (46-116); ALT/SGPT 19 U/L (7.0-40); AST/SGOT 13 U/L (<34); BILIRUBIN,DIRECT < 0.1 MG/DL (<0.4); BILIRUBIN,TOTAL 0.3 MG/DL (0.3-1.2); BLOOD UREA NITROGEN 12 MG/DL (9-23); CARBON DIOXIDE LEVEL 30 MMOL/L (20-31); CHLORIDE LEVEL 107 MMOL/L (98-107); CREATININE FOR GFR 0.69 MG/DL (0.55-1.30); GLOMERULAR FILTRATION RATE > 60.0 (>60); GLUCOSE, FASTING 100 MG/DL (60-100); HCG, SERUM QUALITATIVE NEGATIVE (NEGATIVE); PHOSPHORUS LEVEL 4.2 MG/DL (2.5-4.9); POTASSIUM SERUM 4.3 MMOL/L (3.5-5.1); SODIUM LEVEL 140 MMOL/L (136-145)
[2023-01-22 17:14] LABS: CK-MB VALUE MASS < 1.0 NG/ML (<3.6)
[2023-01-22 17:15] LABS: CPK CREATINE PHOSPHOKINASE 80 U/L (34-145); MB/CK RELATIVE INDEX 1.25 (< OR =4)
[2023-01-22] MEDS ORDERED: ISOVUE-370 76% 100ML VIAL As Ordered ONE (17:22)
[2023-01-22 18:00] VITALS: BP 118/67
[2023-01-22 18:01] VITALS: O2SAT 99
== END 2023-01-22 18:06 | disposition home or self-care (01) ==
LOC: M ED 14:01
DX: R07.9 Chest pain, unspecified (principal); R00.2 Palpitations; I10 Essential (primary) hypertension; K21.9 Gastro-esophageal reflux disease without esophagitis; F41.9 Anxiety disorder, unspecified; Z91.048 Other nonmedicinal substance allergy status; Z79.899 Other long term (current) drug therapy
CPT/HCPCS: 36415; 71275; 80048; 80076; 82550; 82553; 83690; 83735; 84100; 84439; 84443; 84484; 84703; 85025; 85610; 85730; 87631; 93005; 93041; 94760; 99285; Q9967

== ENCOUNTER 2023-01-29 11:30 | Day surgery (SDC) | payer OTHER ==
[~2023-01-29] VITALS: Ht 170.2 cm; Wt 94.0 kg
[~2023-01-29 11:30] MED LIST changes: +FERRTAB6; +LEXA5TAB13; +LIDOCAINE 2% 100MG/5ML SDV (FOR ANES.) As Ordered ONE; +NS 1,000 ML IV ONE; +propofoL 200 MG/20 ML VIAL As Ordered ONE
[2023-01-29] MEDS ORDERED: fentaNYL 100 MCG/2 ML INJECTION As Ordered ONE (12:49)
[2023-01-29] MEDS ORDERED: propofoL 200 MG/20 ML VIAL As Ordered ONE (13:36)
[2023-01-29 13:58] VITALS: TEMP 98.4
[2023-01-29 14:24] VITALS: BP 143/87; O2SAT 96
== END 2023-01-29 14:27 | disposition home or self-care (01) ==
LOC: M OPP 11:30
PROVIDERS: ATTEND Internal Medicine Gastroenterology
DX: K63.5 Polyp of colon (principal); K22.89 Other specified disease of esophagus; K44.9 Diaphragmatic hernia without obstruction or gangrene; K31.7 Polyp of stomach and duodenum; K31.89 Other diseases of stomach and duodenum; Z87.891 Personal history of nicotine dependence; Z79.899 Other long term (current) drug therapy
CPT/HCPCS: 43239; 45385; 88305; J3010

== ENCOUNTER → 2023-04-05 | Outpatient (REF) | payer OTHER ==
[~2023-04-05] MED LIST changes: -LIDOCAINE 2% 100MG/5ML SDV (FOR ANES.) As Ordered ONE; -NS 1,000 ML IV ONE; -propofoL 200 MG/20 ML VIAL As Ordered ONE
[2023-04-05 18:39] LABS: HEMATOCRIT 43.2 % (36.0-47.0); HEMOGLOBIN 14.1 g/dl (12.0-15.5); MEAN CORPUSCULAR HEMOGLOBIN 30.3 pg (27.0-33.0); MEAN CORPUSCULAR HGB CONC 32.6 g/dl (32.0-36.5); MEAN CORPUSCULAR VOLUME 92.7 fl (80.0-96.0); PLATELET COUNT, AUTOMATED 296 10^3/uL (150-450); RED BLOOD COUNT 4.66 10^6/uL (4.00-5.40); WHITE BLOOD COUNT 9.6 10^3/uL (4.0-10.0)
[2023-04-05 19:11] LABS: THYROID STIMULATING HORMONE 0.899 uIU/ML (0.55-4.78)
[2023-04-05 19:12] LABS: FREE T4 0.88 NG/DL (0.89-1.76)
[2023-04-05 19:14] LABS: TOTAL T3 116.4 NG/DL (60.0-181.0)
[2023-04-05 19:15] LABS: RSV AMPLIFICATION NEGATIVE (NEGATIVE)
== END ==
LOC: M SFHCCLAY 14:46
PROVIDERS: ATTEND Family Medicine
DX: E04.9 Nontoxic goiter, unspecified (principal); Z86.2 Personal history of diseases of the blood and blood-forming organs and certain disorders involving the immune mechanism; J02.9 Acute pharyngitis, unspecified

== ENCOUNTER → 2023-08-16 | Outpatient (REF) | payer OTHER | LOC: M SFHCWAGY 13:41 | PROVIDERS: ATTEND Advanced Practice Midwife | DX: Z12.4 Encounter for screening for malignant neoplasm of cervix (principal); Z77.9 Other contact with and (suspected) exposures hazardous to health | CPT/HCPCS: 87624; G0123 ==

== ENCOUNTER 2023-09-28 04:11 | Emergency (ER) | payer OTHER ==
[~2023-09-28] VITALS: Ht 172.7 cm; Wt 97.1 kg
[~2023-09-28 04:11] MED LIST changes: -HOLTER MONITOR XX
[2023-09-28 04:53] LABS: BASO % 0.5 % (0.0-1.0); EOS # 0.2 10^3/uL (0.0-0.5); EOS % 2.1 % (0.0-3.0); HEMATOCRIT 38.3 % (36.0-47.0); HEMOGLOBIN 12.8 g/dl (12.0-15.5); LYMPH # 2.2 10^3/uL (1.5-5.0); LYMPH % 29.1 % (24.0-44.0); MEAN CORPUSCULAR HEMOGLOBIN 30.2 pg (27.0-33.0); MEAN CORPUSCULAR HGB CONC 33.4 g/dl (32.0-36.5); MEAN CORPUSCULAR VOLUME 90.3 fl (80.0-96.0); MONO # 0.6 10^3/uL (0.0-0.8); MONO % 7.6 % (2.0-8.0); NEUTROPHILS # 4.6 10^3/uL (1.5-8.5); NEUTROPHILS % 60.4 % (36.0-66.0); PLATELET COUNT, AUTOMATED 253 10^3/uL (150-450); RED BLOOD COUNT 4.24 10^6/uL (4.00-5.40); WHITE BLOOD COUNT 7.6 10^3/uL (4.0-10.0)
[2023-09-28 05:20] LABS: BLOOD UREA NITROGEN 11 MG/DL (9-23); CALCIUM LEVEL 8.2 MG/DL (8.5-10.1); CARBON DIOXIDE LEVEL 28 MMOL/L (20-31); CHLORIDE LEVEL 105 MMOL/L (98-107); CK-MB VALUE MASS < 1.0 NG/ML (<3.6); CREATININE FOR GFR 0.63 MG/DL (0.55-1.30); GLOMERULAR FILTRATION RATE > 60.0 (>60); GLUCOSE, FASTING 103 MG/DL (60-100); SODIUM LEVEL 139 MMOL/L (136-145)
[2023-09-28 05:22] LABS: FREE T4 0.97 NG/DL (0.89-1.76); THYROID STIMULATING HORMONE 2.995 uIU/ML (0.55-4.78)
[2023-09-28 05:36] LABS: CPK CREATINE PHOSPHOKINASE 75 U/L (34-145); MB/CK RELATIVE INDEX 1.33 (< OR =4)
[2023-09-28 06:35] LABS: LIPASE 35 U/L (12-53)
[2023-09-28 06:36] LABS: CK-MB VALUE MASS < 1.0 NG/ML (<3.6)
[2023-09-28 06:37] LABS: ALBUMIN 3.5 G/DL (3.2-5.2); ALKALINE PHOSPHATASE 62 U/L (46-116); ALT/SGPT 18 U/L (7.0-40); AST/SGOT < 8 U/L (<34); BILIRUBIN,DIRECT < 0.1 MG/DL (<0.4); BILIRUBIN,TOTAL 0.3 MG/DL (0.3-1.2); TOTAL PROTEIN 6.5 G/DL (5.7-8.2)
[2023-09-28 06:39] LABS: CPK CREATINE PHOSPHOKINASE 75 U/L (34-145); MB/CK RELATIVE INDEX 1.33 (< OR =4)
[2023-09-28] MEDS: KETOROLAC 30 MG/ML 1ML VIAL IV ONE (06:49)
[2023-09-28 06:54] LABS: HCG, SERUM QUALITATIVE NEGATIVE (NEGATIVE)
[2023-09-28] MEDS ORDERED: HOLTER MONITOR XX (07:58)
[2023-09-28 08:23] VITALS: BP 117/81; TEMP 98.4; O2SAT 98
== END 2023-09-28 08:32 | disposition home or self-care (01) ==
LOC: M ED 04:11
DX: R07.89 Other chest pain (principal); I10 Essential (primary) hypertension; K21.9 Gastro-esophageal reflux disease without esophagitis; I49.3 Ventricular premature depolarization; J30.89 Other allergic rhinitis; Z79.899 Other long term (current) drug therapy
CPT/HCPCS: 71045; 80048; 80076; 82550; 82553; 83690; 83880; 84439; 84443; 84484; 84703; 85025; 85379; 93005; 93041; 94760; 96374; 99284; J1885

== ENCOUNTER → 2023-09-28 | Outpatient (CLI) | payer OTHER ==
[~2023-09-28] MED LIST changes: -ESOM0.1C PO; +ESOM1CAP20 PO; -ESOM1CAP5 PO; +ESOM20CA2 PO; +HOLTER MONITOR XX
== END ==
LOC: M EKG 08:41
PROVIDERS: ATTEND Physician Assistant Medical
DX: R00.2 Palpitations (principal)

== ENCOUNTER → 2023-11-26 | Outpatient (CLI) | payer OTHER ==
[~2023-11-26] MED LIST changes: +HOLTER MONITOR XX
== END ==
LOC: M CLY 11:47
PROVIDERS: ATTEND Physician Assistant
DX: M25.511 Pain in right shoulder (principal); M75.31 Calcific tendinitis of right shoulder

== ENCOUNTER → 2024-05-22 | Outpatient (REF) | payer OTHER ==
[2024-05-22 17:18] LABS: HEMATOCRIT 38.5 % (36.0-47.0); MEAN CORPUSCULAR HEMOGLOBIN 30.2 pg (27.0-33.0); MEAN CORPUSCULAR HGB CONC 33.8 g/dl (32.0-36.5); MEAN CORPUSCULAR VOLUME 89.3 fl (80.0-96.0); PLATELET COUNT, AUTOMATED 300 10^3/uL (150-450); RED BLOOD COUNT 4.31 10^6/uL (4.00-5.40)
[2024-05-22 17:48] LABS: IRON (FE) 52 UG/DL (50-170)
[2024-05-22 17:49] LABS: HEMOGLOBIN A1c 5.7 % (4.0-6.0)
[2024-05-22 17:51] LABS: FREE T4 0.95 NG/DL (0.89-1.76)
[2024-05-22 17:56] LABS: ALBUMIN 3.7 G/DL (3.2-5.2); ALKALINE PHOSPHATASE 68 U/L (35-104); ALT/SGPT 17 U/L (7.0-40); AST/SGOT 12 U/L (<34); BILIRUBIN,TOTAL 0.2 MG/DL (0.3-1.2); BLOOD UREA NITROGEN 15 MG/DL (9-23); CALCIUM LEVEL 8.7 MG/DL (8.5-10.1); CARBON DIOXIDE LEVEL 26 MMOL/L (20-31); CHLORIDE LEVEL 107 MMOL/L (98-107); CHOLESTEROL LEVEL 212 MG/DL (<200); CHOLESTEROL RISK RATIO 4.51 (<5); CREATININE FOR GFR 0.58 MG/DL (0.55-1.30); GLOMERULAR FILTRATION RATE > 60.0 (>58); GLUCOSE, FASTING 104 MG/DL (60-100); LDL CHOLESTEROL 87.8 MG/DL (<100); POTASSIUM SERUM 4.4 MMOL/L (3.5-5.1); SODIUM LEVEL 141 MMOL/L (136-145); TOTAL PROTEIN 7.3 G/DL (5.7-8.2); TRIGLYCERIDES LEVEL 386 MG/DL (<150)
== END ==
LOC: M SFHCCLAY 14:54
PROVIDERS: ATTEND Family Medicine
DX: Z86.2 Personal history of diseases of the blood and blood-forming organs and certain disorders involving the immune mechanism (principal); E78.1 Pure hyperglyceridemia; E04.9 Nontoxic goiter, unspecified; R73.01 Impaired fasting glucose

== ENCOUNTER → 2024-06-10 | Outpatient (CLI) | payer OTHER | LOC: M CLY 11:10 | PROVIDERS: ATTEND Family Medicine | DX: M11.012 Hydroxyapatite deposition disease, left shoulder (principal) ==

== ENCOUNTER → 2024-06-10 | Outpatient (CLI) | payer OTHER | LOC: M CLY 11:01 | PROVIDERS: ATTEND Family Medicine | DX: Z53.9 Procedure and treatment not carried out, unspecified reason (principal) ==

== ENCOUNTER → 2024-08-19 | Outpatient (REF) | payer OTHER | LOC: M SFHCWAGY 15:44 | PROVIDERS: ATTEND Advanced Practice Midwife | DX: Z12.4 Encounter for screening for malignant neoplasm of cervix (principal) ==

== ENCOUNTER → 2024-10-14 | Outpatient (REF) | payer OTHER ==
[~2024-10-14] MED LIST changes: +CARV3.12 PO; -LEXA5TAB13; +LEXA5TAB13 PO; +OMEP1CAP73 PO; +[UNRECOGNIZED DRUG - REMARK] PO
== END ==
LOC: M SFHCCLAY 10:45
PROVIDERS: ATTEND Physician Assistant
DX: R20.0 Anesthesia of skin (principal); Z53.9 Procedure and treatment not carried out, unspecified reason

== ENCOUNTER 2024-11-05 07:05 | Day surgery (SDC) | payer OTHER ==
[~2024-11-05] VITALS: Ht 170.2 cm; Wt 95.2 kg
[2024-11-05] MEDS ORDERED: LIDOCAINE 2% 100 MG/5 ML SDV (FOR ANES.) As Ordered ONE (08:30)
[2024-11-05] MEDS ORDERED: GLYCOPYRROLATE INJ 0.2 MG/ML 2 ML VIAL As Ordered ONE (08:30)
[2024-11-05 08:37] VITALS: TEMP 98.5
[2024-11-05 08:56] VITALS: BP 134/81; O2SAT 99
== END 2024-11-05 09:04 | disposition home or self-care (01) ==
LOC: M OPP 07:05
PROVIDERS: ATTEND Internal Medicine Gastroenterology
DX: K22.70 Barrett's esophagus without dysplasia (principal); K44.9 Diaphragmatic hernia without obstruction or gangrene; K22.89 Other specified disease of esophagus; R12 Heartburn; Z91.048 Other nonmedicinal substance allergy status; Z79.51 Long term (current) use of inhaled steroids; Z79.899 Other long term (current) drug therapy
CPT/HCPCS: 43239; 88305; J1596

== ENCOUNTER → 2025-01-27 | Outpatient (CLI) | payer OTHER | LOC: M SOG 07:19 | PROVIDERS: ATTEND Orthopaedic Surgery | DX: M75.32 Calcific tendinitis of left shoulder (principal); M25.512 Pain in left shoulder ==